=== PATIENT | female | born 1960 | race Caucasian/White ===

== ENCOUNTER 2019-08-10 22:52 | Emergency (ER) | payer OTHER ==
[~2019-08-10] VITALS: Ht 167.6 cm; Wt 81.7 kg
[2019-08-10 22:53] VITALS: BP 149/75
[2019-08-10] MEDS ORDERED: NOHOMEMEDICATIONS (22:59)
== END 2019-08-10 23:30 | disposition home or self-care (01) ==
LOC: ER 22:52
DX: R51 Headache (principal); F17.210 Nicotine dependence, cigarettes, uncomplicated; Z88.0 Allergy status to penicillin; Z88.6 Allergy status to analgesic agent; Z88.8 Allergy status to other drugs, medicaments and biological substances

== ENCOUNTER 2021-03-16 09:54 | Emergency (ER) | payer BC ==
[~2021-03-16] VITALS: Ht 170.2 cm; Wt 70.3 kg
[~2021-03-16 09:54] MED LIST: NOHOMEMEDICATIONS
[2021-03-16 10:31] LABS: ABSOLUTE NEUTROPHILS 12.1 thou/uL (1.4-8.2); BASOPHILS 0.1 % (0.0-2.0); HEMATOCRIT 43.6 % (37.0-47.0); HEMOGLOBIN 14.8 gm/dL (12.0-15.0); LYMPHOCYTES 5.2 % (24.0-44.0); MCH 32.6 pg (26.0-34.0); MCV 95.7 fL (80.0-100.0); PLATELET COUNT 218 thou/uL (150-400); POLYS 87.7 % (36.0-66.0); RBC 4.55 mil/uL (4.20-5.00); RDW 13.1 % (10.5-14.5); WBC 13.8 thou/uL (4.0-11.0)
[2021-03-16 11:25] LABS: ANION GAP 16 mmol/L (7-16); BUN 13 mg/dL (7-18); CALCIUM 9.1 mg/dL (8.5-10.1); CHLORIDE 91 mmol/L (98-107); CO2 21 mmol/L (21-32); GLUCOSE 123 mg/dL (74-106); POTASSIUM 3.5 mmol/L (3.5-5.1); SODIUM 128 mmol/L (136-145)
[2021-03-16 11:37] LABS: ALBUMIN 3.4 g/dL (3.4-5.0); SGOT 17 U/L (15-37); SGPT 18 U/L (14-59); TOTAL BILIRUBIN 0.7 mg/dL (0.2-1.0); TOTAL PROTEIN 8.5 g/dL (6.4-8.2); TROPONIN-I <0.06 ng/mL (<0.06)
[2021-03-16] MEDS ORDERED: MOBIC15 MG PO (15:31)
[2021-03-16] MEDS ORDERED: VIBRAMYCIN 100100 MG PO (15:31)
[2021-03-16] MEDS ORDERED: ZOFRAN ODT4 MG PO (15:31)
[2021-03-16 15:56] VITALS: BP 137/64
--- NOTE | 2021-03-17 08:45 | EKG ---
[place] [address] [facility] [place] [address] ELECTROCARDIOGRAM REPORT Name: KELLE LI [facility] [id number] Admission: 03/16/21 Attend Phys: Discharge: 03/16/21 Date of : 64 Report #: [id number] [facility] ED Test Date: 2021-03-16 Test Time: 12:24:31 Pat Name: KELLE LI Department: Room: Gender: F Food Assembler Kitchen: JARAD : 1960 Requested By: Elisa Mata Order Number: [id number] MD: Micheal Dickey Measurements Intervals [place] Rate: 82 P: 54 WI: 166 QRS: 7 QRSD: 92 T: 39 QT: 402 QTc: 470 Interpretive Statements Sinus rhythm Borderline T abnormalities, anterior leads Baseline wander in lead(s) I,III,aVR,aVL,V1,V2,V3,V4,V5,V6 No previous ECG available for comparison Electronically Signed On 03-17-2021 8:45:32 CDT by Micheal Dickey [email or web address] <ELECTRONICALLY SIGNED> By: Micheal Dickey MD, [facility] 03/17/21 0845 1224 1224 Micheal Dickey MD, [facility] /EPI
== END 2021-03-16 15:57 | disposition home or self-care (01) ==
LOC: ER 09:54
PROVIDERS: Emergency Medicine
DX: J18.9 Pneumonia, unspecified organism (principal); F17.210 Nicotine dependence, cigarettes, uncomplicated; Z20.822 Contact with and (suspected) exposure to COVID-19; Z88.6 Allergy status to analgesic agent; Z88.0 Allergy status to penicillin; Z88.8 Allergy status to other drugs, medicaments and biological substances